=== PATIENT | male | born 2000 | race Caucasian/White ===

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

== ENCOUNTER 2020-05-11 14:24 | Emergency (ER) | payer SELFPAY ==
[2020-05-11] MEDS ORDERED: Bacitracin Oint 1 GM U/D Packet TOP ONE (14:29)
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
[2020-05-11] MEDS ORDERED: Sodium Chloride 0.9% 10 ML Syringe FLUSH PRN (15:36)
[2020-05-11] MEDS ORDERED: Sodium Chloride 0.9% 2.5 ML Syringe FLUSH PRN (15:36)
[2020-05-11] MEDS ORDERED: Lactated Ringers 1,000 ML IV ONE (15:36)
[2020-05-11] MEDS ORDERED: Acetaminophen/HYDROcodone 325-5 MG Tab PO ONE (15:36)
[2020-05-11 16:16] LABS: BLOOD UREA NITROGEN,BUN 9 mg/dL (7.0-18.0); CARBON DIOXIDE,CO2 25.7 mmol/L (21.0-32.0); CHLORIDE,CL 103 mmol/L (98-107); GLUCOSE RANDOM 119 mg/dL (74-106); POTASSIUM,K 3.6 mmol/L (3.5-5.1); SODIUM,NA 140 mmol/L (136-148)
[2020-05-11] MEDS ORDERED: Sodium Chloride 0.9% 1,000 ML IV ONE (17:13)
--- NOTE | 2020-05-11 17:54 | CT ---
CT chest Technique: Multiple axial sections were obtained from above the dome of the diaphragm inferiorly through the pubic symphysis. Intravenous contrast was utilized. No oral contrast has been given. Findings: Visualized lung bases show nothing acute. Liver contains no focal abnormality. Spleen appears within normal limits. Adrenal glands show no nodule. Kidneys show symmetric contrast enhancement. Subcutaneous density is noted within the right flank presumably due to superficial contusion. No pelvic mass or adenopathy is seen. Aorta shows normal enhancement. No aneurysm is seen. Minimal free fluid is seen. No inflammatory change is seen. Bone window settings were reviewed which shows no acute osseous finding. Unilateral spondylolytic defect are noted at L4-5 and L5-S1 which are pre-existing. Impression: 1. Subcutaneous flank hematoma on the right side. 2. 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 3. Nothing acute is seen within the abdomen or pelvis. Diagnostic code #2 This report was dictated in MDT
[2020-05-11] MEDS ORDERED: Iopamidol 755 Mg/ML 100 ML Bottle IVPUSH STA (17:55)
--- NOTE | 2020-05-11 17:58 | CT ---
CT chest Technique: Multiple axial sections through the chest were obtained. Reconstructed coronal and sagittal images were obtained. Intravenous contrast was utilized. Comparison: No prior chest imaging is available. Findings: Thoracic aorta appears within normal limits. Mediastinum and hilar regions show no adenopathy. No mediastinal hematoma is seen. No pericardial thickening is seen. Lungs are clear with no acute parenchymal change. No pleural effusions are seen. No pneumothorax is identified. Bone window settings were reviewed. No acute osseous finding is appreciated. Impression: 1. Nothing acute is identified on CT study of the chest. Diagnostic code #1 This report was dictated in MDT
== END 2020-05-11 18:50 | disposition home or self-care (01) ==
LOC: MW.ED 14:24
DX: S01.01XA Laceration without foreign body of scalp, initial encounter (principal); S40.212A Abrasion of left shoulder, initial encounter; S40.211A Abrasion of right shoulder, initial encounter; S51.001A Unspecified open wound of right elbow, initial encounter; R00.0 Tachycardia, unspecified; Z88.0 Allergy status to penicillin; V86.96XA Unspecified occupant of dirt bike or motor/cross bike injured in nontraffic accident, initial encounter
CPT/HCPCS: 12002; 36415; 71260; 74177; 80053; 85025; 93005; 96360; 96361; 99284; A9270; J2001; J7030; J7120; Q9967; 99283

== ENCOUNTER 2020-05-19 11:19 | Emergency (ER) | payer BC | END 2020-05-19 11:30 | disposition home or self-care (01) | LOC: MW.ED 11:19 | DX: S01.01XD Laceration without foreign body of scalp, subsequent encounter (principal); V86.56XD Driver of dirt bike or motor/cross bike injured in nontraffic accident, subsequent encounter | CPT/HCPCS: 99281 ==

== ENCOUNTER 2021-10-03 17:59 | Emergency (ER) | payer BC ==
[2021-10-03] MEDS ORDERED: Ondansetron 4 MG Tab PO ONE (19:19)
== END 2021-10-03 19:54 | disposition home or self-care (01) ==
LOC: MW.ED 17:59
DX: U07.1 COVID-19 (principal); Z88.0 Allergy status to penicillin
CPT/HCPCS: 87635; 87804; 93005; 99284; A9270; U0002

== ENCOUNTER 2023-03-07 22:55 | Emergency (ER) | payer OTHER, BC ==
[2023-03-07 23:41] LABS: BASOPHILS ABSOLUTE AUTO 0.1 K/uL (0.0-0.1); BASOPHILS PERCENT AUTO 0.4 % (0.0-1.5); EOSINOPHILS ABSOLUTE AUTO 0.5 K/uL (0.0-0.7); EOSINOPHILS PERCENT AUTO 3.7 % (0.0-7.0); HEMATOCRIT 43.1 % (38.0-50.0); HEMOGLOBIN 14.7 g/dL (13.0-17.0); LYMPHOCYTES ABSOLUTE AUTO 5.7 K/uL (0.6-2.4); LYMPHOCYTES PERCENT AUTO 46.3 % (16.0-40.0); MEAN CORPUSCULAR HEMOGLOBIN 29.7 pg (27.0-32.0); MEAN CORPUSCULAR HGB CONC 34.1 g/dL (31.0-37.0); MEAN CORPUSCULAR VOLUME 87.1 fL (80.0-98.0); MONOCYTES ABSOLUTE AUTO 0.7 K/uL (0.0-0.8); MONOCYTES PERCENT AUTO 5.5 % (0.0-15.0); NEUTROPHILS ABSOLUTE AUTO 5.4 K/uL (1.4-5.7); NEUTROPHILS PERCENT AUTO 44.1 % (48.0-80.0); NRBC ABSOLUTE 0 K/uL; PLATELET COUNT,PLT 239 K/uL (150-400); RED BLOOD CELL COUNT 4.95 M/uL (4.50-5.90); WHITE BLOOD CELL COUNT,WBC 12.32 K/uL (4.0-11.0)
[2023-03-08 00:03] LABS: A/G RATIO 1.2 (0.9-1.6); ALBUMIN 4.1 g/dL (3.4-5.0); BILIRUBIN TOTAL 1.3 mg/dL (0.2-1.0); CALCIUM 8.5 mg/dL (8.5-10.1); CARBON DIOXIDE,CO2 22.7 mmol/L (21.0-32.0); CREATININE 1.1 mg/dL (0.8-1.3); EST CRCL DRUG DOSING (CG) 111.24 mL/min; POTASSIUM,K 3.2 mmol/L (3.5-5.1); PROTEIN TOTAL,TP 7.5 g/dL (6.4-8.2)
[2023-03-08 01:19] LABS: APPEARANCE,URINE CLEAR; BILIRUBIN,URINE NEGATIVE (NEGATIVE); COLOR,URINE YELLOW; GLUCOSE,URINE NEGATIVE (NEGATIVE); KETONES,URINE NEGATIVE (NEGATIVE); LEUKOCYTE ESTERASE,URINE NEGATIVE (NEGATIVE); NITRITE,URINE NEGATIVE (NEGATIVE); OCCULT BLOOD,URINE MODERATE (NEGATIVE); PROTEIN,URINE TRACE mg/dL (NEGATIVE); UROBILINOGEN,URINE 0.2 EU/dL (<2.0)
[2023-03-08] MEDS ORDERED: diphenhydrAMINE 50 MG/ML SDV IVPUSH ONE (01:26)
[2023-03-08 01:42] LABS: AMPHETAMINES SCREEN, URINE NEGATIVE (CUTOFF=500); BARBITURATE SCREEN,URINE NEGATIVE (CUTOFF=200); BENZODIAZEPINES SCREEN,URINE NEGATIVE (CUTOFF=150); BUPRENORPHINE SCREEN,URINE NEGATIVE (CUTOFF=10); METHADONE SCREEN, URINE NEGATIVE (CUTOFF=200); METHAMPHETAMINES SCREEN, URINE NEGATIVE (CUTOFF=500); OXYCODONE SCREEN,URINE NEGATIVE (CUT0FF=100); PCP SCREEN,URINE NEGATIVE (CUTOFF=25); PROPOXYPHENE SCREEN,URINE NEGATIVE (CUTOFF=300); THC SCREEN,URINE 20 NG/ML NEGATIVE (CUTOFF=50)
[2023-03-08] MEDS ORDERED: Iopamidol 755 MG/ML 500 ML Multipack Bottle IVPUSH ONE (01:42)
[2023-03-08 01:43] LABS: AMORPHOUS SEDIMENT,URINE LIGHT (NEGATIVE); BACTERIA,URINE RARE (NEGATIVE); EPITHELIAL CELLS,URINE RARE (NONE-FEW); RBC,URINE 0-3 (0-2/HPF); WBC,URINE 0-2 (0-5/HPF)
[2023-03-08] MEDS ORDERED: Bacitracin Oint 28.35 GM Tube TOP STA (02:26)
== END 2023-03-08 04:05 ==
LOC: MW.ED 22:55
DX: S51.011A Laceration without foreign body of right elbow, initial encounter (principal); S01.511A Laceration without foreign body of lip, initial encounter; S20.219A Contusion of unspecified front wall of thorax, initial encounter; S40.212A Abrasion of left shoulder, initial encounter; S80.212A Abrasion, left knee, initial encounter; S80.211A Abrasion, right knee, initial encounter; S30.810A Abrasion of lower back and pelvis, initial encounter; Z88.0 Allergy status to penicillin; V29.99XA Rider (driver) (passenger) of other motorcycle injured in unspecified traffic accident, initial encounter; Y92.410 Unspecified street and highway as the place of occurrence of the external cause
CPT/HCPCS: 12032; 36415; 70450; 71045; 71260; 72125; 72170; 73560; 74177; 80053; 80305; 80307; 81001; 83690; 85025; 99284; A9270; Q9967

== ENCOUNTER 2023-07-05 01:29 | Emergency (ER) | payer BC ==
[2023-07-05] MEDS ORDERED: Naloxone 0.4 MG/ML SDV IVPUSH ONE (01:34)
== END 2023-07-05 03:00 | disposition home or self-care (01) ==
LOC: MW.ED 01:29
DX: R40.4 Transient alteration of awareness (principal); T40.2X5A Adverse effect of other opioids, initial encounter; Z88.0 Allergy status to penicillin
CPT/HCPCS: 96374; 99285; J2310; 99284